=== PATIENT | male | born 1990 | race Caucasian/White ===

== ENCOUNTER 2017-02-06 18:11 | Emergency (ER) | payer BC ==
[~2017-02-06] VITALS: Ht 182.9 cm; Wt 105.2 kg
[2017-02-06 18:17] VITALS: TEMP 36.8; Ht 182.9 cm; Wt 105.2 kg
[2017-02-06] MEDS ORDERED: MoRPHine SULFATE 10 MG/ML CARP/VIAL IV STA (18:24)
[2017-02-06 18:34] VITALS: BP 147/95; PULSE 91; O2SAT 99
[2017-02-06] MEDS ORDERED: NAPR1TAB9 PO (18:37)
--- NOTE | 2017-02-06 18:59 | DIAGNOSTIC IMAGING REPORT ---
RIGHT WRIST MIN 3 VIEWS ROUTINE CLINICAL HISTORY: Right wrist pain status post trauma COMPARISON: None. DISCUSSION: There is a comminuted intra-articular fracture of the distal radius. There is a dorsal tilt of the distal articular surface. There is associated ulnar styloid fracture. IMPRESSION: Comminuted intra-articular fracture of distal radius with secondary dorsal tilt of the articular surface. There is an associated ulnar styloid fracture. Electronically signed by: Seun Alfredo M.D. 02/06/2017 6:58 PM Dictated Date/Time: 02/06/2017 6:56 PM
[2017-02-06 19:17] VITALS: BP 142/90; PULSE 86; O2SAT 99
[2017-02-06] MEDS ORDERED: MoRPHine SULFATE 4 MG/ML 1 ML CARP\\VIAL IV STA (19:19)
[2017-02-06] MEDS ORDERED: OXYC-57 PO (19:28)
--- NOTE | 2017-02-06 19:28 | EMERGENCY ROOM VISIT NOTE ---
History Report prepared by Theresaibtashi: Hui Bolton Under the Supervision of: Dr. Candido Shah D.O. First contact with patient: 18:21 Chief Complaint: WRIST PAIN Stated Complaint: RIGHT BROKEN WRIST History of Present Illness The patient is a 26 year old male who presents to the Emergency Room with complaints of constant right wrist pain that started prior to arrival. He rates his discomfort as a 7/10. Movement worsens his pain. He reports he was doing a Cross-Fit maneuver of a "clean" lift with 185 pounds when his right wrist pain got stuck between the weight and his shoulder. The patient denies any previous injuries to his wrist. He reports he can still move and feel his fingers and he has experienced no numbness or tingling in the hand. 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 A total of 10 systems reviewed and were otherwise negative. Past Medical & Surgical Medical Problems: (1) Tennis elbow Social History Smoking Status: Never Smoker Smokeless Tobacco Use: No Alcohol Use: occasionally Drug Use: none Marital Status: single Housing Status: lives with roommate Occupation Status: employed Current/Historical Medications Scheduled PRN Naproxen (Aleve), 220 MG PO DIRECTED PRN for Pain Oxycodone/Acetaminophen 5MG/325MG (Percocet 5MG/325MG), 1 TAB PO Q6H PRN for Pain Allergies Coded Allergies: No Known Allergies (Unverified , 02/06/17) Physical Exam Vital Signs Date Time Temp Pulse Resp B/P Pulse Ox O2 Delivery O2 Flow Rate FiO2 02/06/17 19:17 86 20 142/90 99 Room Air 02/06/17 18:34 91 16 147/95 99 Room Air 02/06/17 18:17 36.8 84 16 156/85 99 Room Air Physical Exam CONSTITUTIONAL/VITAL SIGNS: Reviewed / noted above. GENERAL: Non-toxic in appearance. INTEGUMENTARY: Warm, dry, and Rosa. HEAD: Normocephalic. EYES: without scleral icterus or trauma. ENT/OROPHARYNX: clear and moist. LYMPHADENOPATHY/NECK: Is supple without lymphadenopathy or meningismus. RESPIRATORY: Lungs clear and equal. CARDIOVASCULAR: Regular rate and rhythm. GI/ABDOMEN: Soft and nontender. No organomegaly or pulsatile mass. No rebound or guarding. Normal bowel sounds. EXTREMITIES: Warm and well perfused. Mild deformity of right distal wrist, good distal pulses and capillary refill, good motor and sensory function distal to the injury. BACK: No CVA tenderness. NEUROLOGICAL: Intact without focal deficits. PSYCHIATRIC: normal affect. MUSCULOSKELETAL: Normally developed with good muscle tone. Medical Decision & Procedures ER Provider Diagnostic Interpretation: This X-Ray was reviewed and interpreted by myself and the radiologist. RIGHT WRIST MIN 3 VIEWS ROUTINE IMPRESSION: Comminuted intra-articular fracture of distal radius with secondary dorsal tilt of the articular surface. There is an associated ulnar styloid fracture. Electronically signed by: Seun Alfredo M.D. 02/06/2017 6:58 PM Medications Administered Medications (Trade) Dose Ordered Sig/Aruna Route Start Time Stop Time Status Last Admin Dose Admin Morphine Sulfate (MoRPHine SULFATE INJ) 6 mg NOW STAT IV 02/06/17 18:24 02/06/17 18:26 DC 02/06/17 19:12 6 MG Morphine Sulfate (MoRPHine SULFATE INJ) 4 mg NOW STAT IV 02/06/17 19:19 02/06/17 19:22 DC 02/06/17 19:30 4 MG Oxycodone/ Acetaminophen (Percocet 5/ 325MG Home Pack) 1 homepack UD ONCE PO 02/06/17 19:30 02/06/17 19:31 DC 02/06/17 19:30 1 HOMEPACK ED Course 1822: Previous medical records were reviewed. The patient was evaluated in room A1. A complete history and physical examination was performed. 1823: Morphine Sulfate 6 mg IV. 1916: I discussed the patients case with Anant Monsivais and [facility]. He will arrange for follow up in the office. 1918: Morphine Sulfate 4 mg IV. 1929: Percocet 5/325 mg 1 home pack PO. 1931: I reevaluated the patient. He is feeling much better. I discussed his results and discharge instructions and he verbalized complete understanding and agreement. Medical Decision Differential diagnosis: Etiologies such as fracture, dislocation, neurovascular compromise, compartment syndrome, soft tissue injury, as well as others were entertained. The patient presents with a injury to his right wrist as described above. X- ray shows a comminuted fracture of the distal radius. I spoke with Dr. Byrd about the patient. He recommends the patient follow up in the office tomorrow for further evaluation. The patient was splinted with an volar splint. He was given morphine IV here for pain. He will be discharged on Percocet by mouth. Consults Time Called: 1909 Consulting Physician: Anant Monsivais and [facility] Returned Call: 1916 I discussed the patients case with Anant Monsivais and [facility]. He will arrange for follow up in the office. Impression Primary Impression: Distal radius fracture, right Scribe Attestation The scribe's documentation has been prepared under my direction and personally reviewed by me in its entirety. I confirm that the note above accurately reflects all work, treatment, procedures, and medical decision making performed by me. Departure Information Dispostion Home / Self-Care Prescriptions Oxycodone/Acetaminophen 5MG/325MG (PERCOCET 5MG/325MG) Tab 1 TAB PO Q6H Y for Pain, #20 TAB Prov: Candido Shah D.O. 02/06/17 Referrals No Doctor, Assigned (PCP) Patient Instructions My [facility] Additional Instructions Percocet as prescribed. No driving within 6 hours of use. Do not take additional Tylenol while taking Percocet. Keep splint clean and dry. Call Dr. Rodrigues's office tomorrow morning (8-9am) for follow-up tomorrow. [phone].
[2017-02-06] MEDS ORDERED: PERCOCET HOME PACK PO ONE (19:30)
[2017-02-07] MEDS ORDERED: HYDR-4079 PO (14:22)
== END 2017-02-06 19:45 | disposition home or self-care (01) ==
LOC: C.EDB 18:15 → C.ED 19:45
DX: S52.501A Unspecified fracture of the lower end of right radius, initial encounter for closed fracture (principal); X50.1XXA Overexertion from prolonged static or awkward postures, initial encounter

== ENCOUNTER 2017-02-10 08:58 | Day surgery (SDC) | payer BC ==
[2017-02-07 14:22] VITALS: BMI 31.0
--- NOTE | 2017-02-08 17:39 | HISTORY & PHYSICAL EXAMINATION ---
DATE OF ADMISSION: 02/10/2017 CHIEF COMPLAINT: Right distal radius fracture. HISTORY OF PRESENT ILLNESS: Jun is a pleasant 26-year-old male who fell yesterday, sustaining an injury to his right wrist. He went to the Emergency Room, where radiographs demonstrated a complex right distal radius fracture. He was placed in a splint and presented to my office. After discussions, he elected to proceed with operative fixation. He understands all the risks, benefits, and alternatives of procedure and he elected to proceed. PAST MEDICAL HISTORY: Significant for sleep apnea. PAST SURGICAL HISTORY: None. ALLERGIES: None. MEDICATIONS: None. FAMILY HISTORY: Noncontributory. SOCIAL HISTORY: He is single. He rarely drinks. He remains active. REVIEW OF SYSTEMS: He complains of right wrist pain. All other pertinent review of systems is negative. PHYSICAL EXAMINATION: GENERAL: He is awake, alert and oriented x3. He is in no apparent distress. He is very pleasant. HEENT: Pupils are equal, round and reactive to light. Extraocular motions intact. Oral mucosa is pink and moist. HEART: Regular rate per radial pulse. LUNGS: Krysten symmetrically bilaterally with no audible breath sounds. ABDOMEN: Soft, nontender, and nondistended. MUSCULOSKELETAL: On physical examination of his right wrist, he has a large volar splint and he does have active motion of his fingers and no numbness. IMAGING STUDIES: X-rays reviewed from the hospital do show 3-column fracture of the distal radius involving the intermediate, the ulnar styloid and the radial column. There is also a dorsal displacement. IMPRESSION: Complex fracture of the right distal radius. PLAN: We will proceed with open reduction and internal fixation of his right distal radius. Postoperatively, he will be placed in a volar splint and discharged to home on oral pain medications.
[~2017-02-10] VITALS: Ht 182.9 cm; Wt 104.5 kg
[~2017-02-10 08:58] MED LIST: ACETAMINOPHEN 500 MG TAB PO SCH; ATROPINE SULFATE 0.1 MG/ML 5ML SYR IV PRN; CEFAZOLIN 2000 MG/60 ML D5W 60 ML IV SCH; EpHEDrine SULFATE INJ 50 MG/ML AMP IV PRN; FAMOTIDINE 20 MG TAB PO SCH; GABAPENTIN 300 MG CAP PO SCH; HYDR-4079 PO; LACTATED RINGER'S 1000ML IV SCH; ONDANSETRON INJ 2 MG/ML 2 ML VIAL IV PRN
[2017-02-10 09:26] VITALS: BP 145/82; PULSE 76; TEMP 36.8; O2SAT 100; Ht 182.9 cm; Wt 104.5 kg
[2017-02-10] MEDS ORDERED: PROPOFOL IV EMULSION 10 MG/ML 20 ML VIAL IV ONE ×2 (09:31→10:41)
[2017-02-10] MEDS ORDERED: MIDAZOLAM HCL 1 MG/ML 2ML VIAL ONE (09:31)
[2017-02-10] MEDS ORDERED: ONDANSETRON INJ 2 MG/ML 2 ML VIAL ONE (09:31)
[2017-02-10] MEDS ORDERED: LIDOCAINE HCL 2% 2 ML VIAL (20MG/ML) ONE (09:31)
[2017-02-10] MEDS ORDERED: FENTANYL CITRATE INJ 50 MCG/1 ML 2 ML VIAL ONE ×2 (09:31→11:04)
[2017-02-10] MEDS ORDERED: DEXAMETHASONE SOD INJ 4 MG/ML VIAL ONE (09:31)
--- NOTE | 2017-02-10 09:45 | History & Physical Bridge Note ---
H&P Re-Evaluation Bridge Note: I have examined the patient, reviewed the History & Physical and in the interval since the performance of the History & Physical I have noted the following changes of clinical significance: No changes noted
[2017-02-10 09:58] LABS: HEMATOCRIT 40.5 % (42-52); MEAN CELL VOLUME 83.7 fL (80-100); MEAN CORPUSCULAR HEMOGLOBIN 28.7 pg (25-34); MEAN PLATELET VOLUME 9.5 fL (7.4-10.4); PLATELET COUNT 162 K/uL (130-400); RED BLOOD COUNT 4.84 M/uL (4.7-6.1); WHITE BLOOD COUNT 6.42 K/uL (4.8-10.8)
[2017-02-10 10:24] LABS: MEAN CORPUSCULAR HGB CONC 34.3 g/dl (32-36)
[2017-02-10] MEDS ORDERED: BUPIVACAINE/EPINEPHRINE 0.25% 1:200,000 30 ML VIAL ONE (10:56)
--- NOTE | 2017-02-10 12:03 | [facility] Post Operative Brief Note ---
Immediate Operative Summary Operative Date Feb 10, 2017. Pre-Operative Diagnosis Complex fracture of the right distal radius Post-Operative Diagnosis Complex fracture of the right distal radius Procedure(s) Performed Right Distal Radius Open Reduction Internal Fixation Surgeon Dr Byrd Power Reactor Operator Surgeon(s) Dae Jensen PA-C Estimated Blood Loss 25 mL Findings as above Specimens None per surgeon Complication(s) None Disposition Recovery Room / PACU
[2017-02-10] MEDS ORDERED: HYDR-5688 PO (12:19)
[2017-02-10] MEDS ORDERED: SODIUM CHLORIDE 0.9% 1000ML 1,000 ML IV SCH (12:20)
--- NOTE | 2017-02-10 12:20 | Discharge Instructions ---
Discharge Instructions Date of Service Feb 10, 2017. Admission Reason for Admission: Right Distal Radius Fracture Discharge Discharge Diagnosis / Problem: SAME ABOVE Discharge Goals Goal(s): Decrease discomfort, Improve function, Increase independence Activity Recommendations Activity Limitations: as noted below Lifting Limitations: until after follow-up appointment Exercise/Sports Limitations: until after follow-up appointment Shower/Bathe: keep incision dry . Instructions / Follow-Up Instructions / Follow-Up MEDICATIONS: * Resume previous medications unless instructed otherwise by your surgeon. * Always take pain medication on a full stomach or with food to avoid upset stomach. * Do not drink alcohol or drive while taking narcotics. * Ibuprofen or Tylenol may be taken if narcotic not needed. SPECIAL CARE INSTRUCTIONS: __ None _X_ Keep extremity elevated and iced x 48 hours; apply ice 20-30 minutes 8-10 times/day. May remove at night. __ Sling __24 hrs/day __ Remove at night __ Shoulder Immobilizer __ 24 hrs/day __ Remove at night _X_ Dressing _X_ Maintain until seen in office, may shower with plastic over site __ Remove dressings in 24-48 hours and then may shower __ Cover incisions with band-aids after showering __ Do not remove steri-strips Call physician if chills or temperature rises above 102 degrees or pain unrelieved by prescribed pain medications at . . Current Hospital Diet Patient's current hospital diet: Discharge Diet Recommended Diet: Regular Diet Fluid Restriction: None Procedures Procedures Performed: Right Distal Radius Open Reduction Internal Fixation Pending Studies Studies pending at discharge: no Work Instructions Return To Work: after follow-up Lifting Limitations: NO LIFTING WITH RIGHT ARM. Medical Emergencies . Who to Call and When: Medical Emergencies: If at any time you feel your situation is an emergency, please call 911 immediately. . Non-Emergent Contact Non-Emergency issues call your: Primary Care Provider Call Non-Emergent contact if: you have a fever, temperature is above 101, temperature is above 101.5 . "Provider Documentation" section prepared by Jun Jensen. VTE Core Measure Inpt VTE Proph given/why not?: Treatment not indicated
[2017-02-10] MEDS: FENTANYL CITRATE INJ 50 MCG/1 ML 2 ML VIAL IV PRN ×7 (12:25→13:07)
[2017-02-10] MEDS ORDERED: HYDROCODONE/ACETAMOPHEN 5/325MG TAB PO PRN ×2 (12:30)
[2017-02-10] MEDS ORDERED: ONDANSETRON INJ 2 MG/ML 2 ML VIAL IV PRN (12:30)
[2017-02-10 12:35] VITALS: BP 144/82; PULSE 79; TEMP 37.5; O2SAT 94
[2017-02-10 13:05] VITALS: BP 146/78; PULSE 76; TEMP 37; O2SAT 97
[2017-02-10] MEDS ORDERED: NURSING VERBAL MED ORDER ONE (13:15)
--- NOTE | 2017-02-10 13:21 | DIAGNOSTIC IMAGING REPORT ---
RIGHT WRIST 2 VIEWS CLINICAL HISTORY: Right wrist fracture COMPARISON STUDY: Right wrist 02/06/2017. FINDINGS: Total fluoroscopy time was 55 seconds. 2 fluoroscopic spot images submitted. There is a cortical plate and screws traversing the distal radius fracture. The hardware is intact. Alignment is near-anatomic. IMPRESSION: Fluoroscopy provided for a distal right radius fracture. Electronically signed by: Vick Reynolds M.D. 02/10/2017 1:20 PM Dictated Date/Time: 02/10/2017 12:58 PM
--- NOTE | 2017-02-10 13:24 | OPERATIVE REPORT ---
DATE OF OPERATION: 02/10/2017 PREOPERATIVE DIAGNOSIS: Three-part right intra-articular distal radius fracture. POSTOPERATIVE DIAGNOSIS: Same. PROCEDURE: Open reduction and internal fixation of the right distal radius. SURGEON: Dr. Shamar Byrd. PIPE FITTER FIRE SPRINKLER SYSTEMS: Dae Jensen PA-C, whose assistance was necessary for positioning the arm and helping with instrumentation. ANESTHESIA: General. COMPLICATIONS: None. CONDITION: Stable to PACU. IMPLANTS USED: I used Synthes distal radial locking plate. INDICATIONS: Jun is a pleasant 26-year-old male who fractured his right wrist while weightlifting. He came to my office, radiographs demonstrated a distal radius fracture with an intraarticular component. He elected to undergo open reduction and internal fixation. OPERATION AND FINDINGS: On 02/10/2017 he arrived at [facility] for the above procedure. He was seen in the preoperative holding area and the operative extremity was identified and signed. He was given a preoperative antibiotic and taken back to the operating room, laid on the table in supine position and put under general anesthesia. The right wrist was then prepped and draped in a sterile fashion. Time-out was done and the patient and operative extremity was properly identified. An incision was made directly over the flexor carpi radialis. Dissection was taken down to the tendon and it was retracted ulnarly. Care was taken not to disrupt the radial artery. Dissection was taken down to the quadratus and was lifted off the distal radius. The fracture was then exposed. The fracture was reduced and a pin was placed down the radial styloid to hold reduction. A 3-hole Synthes distal radial locking plate was then placed. Appropriate placement was checked under fluoroscopy. A single compression screw was then placed in a combination hole. A compression screw was placed distally as well to compress the fracture to the plate. I was able to get near anatomic reduction. Five additional locking screws were placed distally and 2 additional locking screws were placed proximally. Final x-rays showed all the screws to be out of the joint. Multiple pictures were taken. The wound was then irrigated. Tourniquet was deflated. Hemostasis was easily controlled. The quadratus was repaired with the use of #0 Vicryl suture and the skin was closed with 3-0 Vicryl, a running 3-0 V-Loc suture and a Prineo dressing. He was then placed in a volar splint, extubated, transferred to a [facility] and taken to the postanesthesia care unit in stable condition. He tolerated the procedure well. I attest to the content of the Intraoperative Record and any orders documented therein. Any exceptio ns are noted below.
[2017-02-10 13:35] VITALS: BP 147/76; PULSE 84; TEMP 37.5; O2SAT 96
--- NOTE | 2017-02-10 14:03 | Anesthesiology Progress Note ---
Anesthesia Post Op Note Date & Time Feb 10, 2017 at 14:04 Vital Signs Vital Signs Past 12 Hours Date Time Temp Pulse Resp B/P Pulse Ox O2 Delivery O2 Flow Rate FiO2 02/10/17 13:15 36.7 82 19 146/91 95 Room Air 02/10/17 13:05 85 15 144/89 95 Room Air 02/10/17 12:55 89 17 145/101 93 Room Air 02/10/17 12:45 84 16 151/100 95 Room Air 02/10/17 12:35 72 16 153/102 100 Mask 10 02/10/17 12:35 37.5 79 20 144/82 94 Room Air 02/10/17 12:25 85 16 151/109 100 Mask 10 02/10/17 12:18 36.0 93 16 145/79 100 Mask 10 02/10/17 09:26 36.8 76 20 145/82 100 Room Air Notes Mental Status: alert / awake / arousable, participated in evaluation Pt Amnestic to Procedure: Yes Nausea / Vomiting: adequately controlled Pain: adequately controlled Airway Patency, RR, SpO2: stable & adequate BP & HR: stable & adequate Hydration State: stable & adequate Anesthetic Complications: no major complications apparent
== END 2017-02-10 14:47 | disposition home or self-care (01) ==
LOC: C.ACU 08:58
PROVIDERS: ATTEND Orthopaedic Surgery
DX: S52.571A Other intraarticular fracture of lower end of right radius, initial encounter for closed fracture (principal); W19.XXXA Unspecified fall, initial encounter; Y93.B3 Activity, free weights; G47.33 Obstructive sleep apnea (adult) (pediatric); Z68.31 Body mass index [BMI] 31.0-31.9, adult; E66.9 Obesity, unspecified